=== PATIENT | female | born 1965 | race Two or more races ===

== ENCOUNTER 2018-06-21 11:11 | Emergency (ER) | payer OTHER ==
[~2018-06-21] VITALS: Ht 182.9 cm; Wt 72.6 kg
[2018-06-21] MEDS ORDERED: cloNIDine HCL 0.1 MG TAB PO ONE (11:45)
[2018-06-21 12:08] LABS: Basophils # (auto) 0 uL; Basophils % (auto) 0.5 % (0.0-2.0); Eosinophils # (auto) 0.2 uL; Eosinophils % (auto) 2.9 % (0.0-7.0); Hematocrit 44.7 % (36.0-46.0); Hemoglobin 15.5 g/dL (12.2-16.2); Lymphocytes # (auto) 2.3 uL; Lymphocytes % (auto) 29.7 % (10.0-50.0); Mean Corpuscular Hgb Conc. 34.6 g/dL (32.0-36.0); Mean Corpuscular Volume 98.2 fL (80.0-100.0); Monocytes # (auto) 0.6 uL; Monocytes % (auto) 7.9 % (0.0-12.0); Neutrophils # (auto) 4.7 uL; Nucleated Red Blood Cells % 0.1 %; Platelet Count (auto) 193 10^3/uL (140-450); Red Blood Cells 4.55 10^6/uL (4.0-5.20); Red Cell Distribution Width 13.5 % (11.8-14.3); White Blood Cell 7.9 10^3/uL (4.4-10.8)
[2018-06-21 12:30] LABS: Albumin 4.4 g/dL (3.4-5.0); BUN/Creatinine Ratio 14.3; Potassium 3.5 mmol/L (3.5-5.1)
[2018-06-21 12:32] LABS: Bilirubin, Total 0.4 mg/dL (0.2-1.0); Total Protein 7.7 g/dL (6.4-8.2)
[2018-06-21 12:41] LABS: Acetaminophen < 2.0 ug/mL (10-30); Salicylate 4.6 mg/dL (2.8-20.0)
[2018-06-21] MEDS ORDERED: SODIUM CHLORIDE 0.9% 1,000 ML IVB ONE (13:30)
[2018-06-21] MEDS ORDERED: NICOTINE 21MG/24 HR TOPICAL PATCH TD ONE (14:15)
[2018-06-21 14:25] LABS: Urine Bacteria FEW /hpf (None Seen); Urine Blood TRACE /uL (Negative); Urine Specific Gravity 1.003 (1.001-1.035); Urine WBC 2 /hpf (0 - 5)
[2018-06-21 15:06] LABS: Alcohol, Urine < 3.0 mg/dL (0-5); Amphetamine Screen, Urine NEGATIVE (NEGATIVE); Barbiturate Scree,Urine POSITIVE (NEGATIVE); Benzodiazephine Screen, Urine NEGATIVE (NEGATIVE); Cannabinoid Screen, Urine NEGATIVE (NEGATIVE); Cocaine Screen, Urine NEGATIVE (NEGATIVE); Opiate Scree,Urine POSITIVE (NEGATIVE); Phencyclidine Screen, Urine NEGATIVE (NEGATIVE)
[2018-06-21 17:59] LABS: Albumin 4.4 g/dL (3.4-5.0); BUN/Creatinine Ratio 11.3; Calcium 8.7 mg/dL (8.5-10.1); Potassium 3.6 mmol/L (3.5-5.1)
[2018-06-21 18:02] LABS: Bilirubin, Total 0.5 mg/dL (0.2-1.0); Total Protein 7.6 g/dL (6.4-8.2)
[2018-06-21] MEDS ORDERED: cloNIDine HCL 0.1 MG TAB ONE (23:59)
[2018-06-22] MEDS ORDERED: LORazepam 0.5 MG TAB PO ONE (12:15)
[2018-06-22] MEDS ORDERED: NICOTINE 7MG/24HR TOPICAL PATCH TD ONE (17:30)
[2018-06-22] MEDS ORDERED: cloNIDine HCL 0.1 MG TAB PO ONE ×2 (20:00)
[2018-06-23] MEDS ORDERED: LORazepam 0.5 MG TAB PO ONE (01:15)
[2018-06-23] MEDS ORDERED: METOPROLOL TARTRATE 50 MG TAB PO ONE (19:00)
[2018-06-23] MEDS ORDERED: cloNIDine HCL 0.1 MG TAB PO ONE (21:45)
[2018-06-24] MEDS ORDERED: ALPRAZolam 0.5 MG TAB PO ONE ×2 (02:45→22:15)
[2018-06-24] MEDS ORDERED: ALPRAZolam 0.5 MG TAB PO PRN (14:00)
[2018-06-25] MEDS ORDERED: diphenhdrAMINE HCL 25 MG CAP PO ONE (03:30)
[2018-06-25 09:32] VITALS: BP 183/69
== END 2018-06-25 10:04 | disposition home or self-care (01) ==
LOC: ER 11:11
DX: F32.9 Major depressive disorder, single episode, unspecified (principal); T40.4X1A Poisoning by other synthetic narcotics, accidental (unintentional), initial encounter; T42.8X1A Poisoning by antiparkinsonism drugs and other central muscle-tone depressants, accidental (unintentional), initial encounter; T42.4X1A Poisoning by benzodiazepines, accidental (unintentional), initial encounter; T39.1X1A Poisoning by 4-Aminophenol derivatives, accidental (unintentional), initial encounter; F17.210 Nicotine dependence, cigarettes, uncomplicated; F41.9 Anxiety disorder, unspecified; J44.9 Chronic obstructive pulmonary disease, unspecified; I10 Essential (primary) hypertension; Z90.710 Acquired absence of both cervix and uterus; Y92.89 Other specified places as the place of occurrence of the external cause
CPT/HCPCS: 36415; 71046; 80053; 80307; 80329; 81001; 83735; 84443; 85025; 93005; 94761; 99285; J7030